=== PATIENT | female | born 1965 | race Caucasian/White ===

== ENCOUNTER 2018-07-24 11:44 | Inpatient (IN) ==
[2018-07-24] MEDS ORDERED: D50W SYRINGE ONE (11:52)
[2018-07-24 12:13] LABS: BASO# 0.05 X1000 (0.0-0.2); BASO% 0.5 % (0.0-0.8); EOS# 0.32 X1000 (0.0-0.7); EOS% 3.5 % (0.0-10.0); HEMATOCRIT 45.4 % (37.0-47.0); HEMOGLOBIN 14.1 g/dL (12.0-16.0); IMM GRAN# 0.02 X1000 (0.0-0.04); IMM GRAN% 0.2 % (0.0-0.5); LYMPH% 49.2 % (20.5-51.1); MCHC 31.1 g/dL (33-37); MCV 83.6 FL (81-99); MONO# 0.88 X1000 (0.11-0.59); MONO% 9.6 % (1.7-9.3); MPV 12.6 FL (7.4-10.4); NEUT# 3.38 X1000 (1.4-6.5); PLT 250 X1000 (130-400); RBC 5.43 XMIL (4.2-5.4); RDW 17.2 % (11.5-14.5); WBC 9.15 X1000 (4.8-10.8)
[2018-07-24] MEDS ORDERED: ZOFRAN IV ONE (12:24)
[2018-07-24] MEDS ORDERED: D50W SYRINGE IV ONE ×2 (12:24→14:06)
[2018-07-24 12:37] LABS: ALB/GLOB RATIO 2.2; ALBUMIN 4.7 g/dL (3.5-5.0); CALCIUM 9.7 mg/dL (8.8-10.2); CREATININE 1.1 mg/dL (0.5-0.9); MAGNESIUM 2.1 mg/dL (1.5-2.7); POTASSIUM 3.8 mmol/L (3.5-5.1); TOTAL BILIRUBIN 0.36 mg/dL (0.20-1.00); TOTAL PROTEIN 6.8 g/dL (6.3-8.3)
[2018-07-24 12:38] LABS: ACETAMINOPHEN < 1.2 ug/mL (10-30); SALICYLATES < 3.00 mg/dL (3-10)
--- NOTE | 2018-07-24 12:45 | Diag Imaging Result Doc PS360 ---
EXAM: CHEST-PORTABLE - 07/24/2018 HISTORY: syncope TECHNIQUE: Portable chest COMPARISON: 06/15/2018 FINDINGS: Heart size is normal. The lungs appear clear. There is no pleural effusion or pneumothorax identified. IMPRESSION: No evidence of acute disease. Electronically signed by Javan Jarrett 07/24/2018 12:42 PM
--- NOTE | 2018-07-24 14:11 | PROVIDER DOCUMENTATION ---
This chart was entered by Aminta Paz Scribe, acting as scribe for Allen Baez MD. HPI-Syncope/Dizziness - General Stated Complaint: SYNCOPE Time Seen by Provider: 07/24/18 11:51 Source: patient Allergies/Adverse Reactions: Patient Allergies Allergy/AdvReac Type Severity Reaction Status Date / Time acetaminophen [From [place]] AdvReac Unknown Verified 07/22/18 15:34 hydrocodone [From [place]] AdvReac Unknown Verified 07/22/18 15:34 morphine AdvReac Unknown Verified 07/22/18 15:34 Penicillins AdvReac Unknown Verified 07/22/18 15:34 Sulfa (Sulfonamide AdvReac Unknown Verified 07/22/18 15:34 Antibiotics) Home Medications: Home Medication List Medication Instructions Recorded Confirmed Last Taken Type Levofloxacin 250 mg PO DAILY #5 tablet 01/31/17 Unknown Rx Ondansetron Odt [Zofran 8Mg Odt] 8 mg PO Q8H PRN PRN #20 tab 07/22/18 Unknown Rx - History of Present Illness-Syncope/Dizzy Nature of Presenting Problem: 53yof with hx of diabetes presents post-syncopal episode that occurred this morning at work. The patient is a nurse at [employer]. Nurses that work with the patient report that the patient had a witnessed syncopal episode and "slumped" to the floor. They report that the patient reported she did eat breakfast. The patient had a syncopal episode last Wednesday while at work. The patient reports her PCP is Dr. Landrum. Nurses that the patient works with are at bedside. Prior Episodes: reports: recent history Onset/Duration: reports: this morning Timing: reports: improving, intermittent Position/Activity at time of episode: reports: standing Symptoms prior to episode: reports: unknown Context: reports: other (syncopal episode) Loss of Consciousness: unsure Location of injury. (If syncope resulted in an injury.): reports: none Recently Seen Here or By Another Healthcare Provider: Yes (syncopal episode last Wednesday ) Review of Systems - Adult - REVIEW OF SYSTEMS - ADULT ROS:: limited per condition (pt is mostly nonverbal, post-syncopal episode) Constitutional: denies: chills, fever Eyes: reports: no symptoms reported Ears, Nose, Mouth & Throat: reports: no symptoms reported Cardiovascular: reports: no symptoms reported Respiratory: reports: no symptoms reported Gastrointestinal: reports: no symptoms reported Genitourinary: reports: no symptoms reported Musculoskeletal: reports: no symptoms reported Integumentary: reports: no symptoms reported Neurological: reports: syncope. denies: seizure Psychiatric: reports: no symptoms reported Endocrine: reports: no symptoms reported Hematologic/Lymphatic: reports: no symptoms reported Allergic/Immunologic: reports: no symptoms reported All Other Systems: Reviewed and Negative Past History - Adult - PAST MEDICAL HISTORY-ADULT Review of Records: reports: Old Records Reviewed, Nursing Assessment Review, Medications Reviewed Major Childhood Illnesses: reports: denies history Cardiovascular: reports: HTN, hyperlipidemia Respiratory: reports: denies history Gastrointestinal: reports: denies history Obstetrical/Gynecological: reports: denies history Genitourinary: reports: denies history Musculoskeletal: reports: denies history Neurological: reports: denies history Psychiatric: reports: denies history Endocrine/Immune: reports: Diabetes Other Conditions: reports: denies history Additional History: neuropathy - PRIOR SURGERIES/PROCEDURES Surgical/Procedure History: reports: reviewed, not pertinent - IMMUNIZATION STATUS Childhood Immunizations: See Nurse Assessment Flu Vaccine: See Nurse Assessment - FAMILY HISTORY Family History: reviewed, not pertinent - SOCIAL HISTORY Smoking: non-smoker Substance Use: denies Living Situation: family Physical Exam-General - PHYSICAL EXAM-ADULT Initial Vital Signs Reviewed: Yes - CONSTITUTIONAL General Appearance: lethargic, other (pt is awake, lying down, lethargic, eyelid fluttering, pt is mostly nonverbal, post-syncopal episode) - EYES Eyes: PERRL/EOMI, pink conjunctivae - NECK Neck: other (unable to assess due to pt lying down, post-syncopal episode) - RESPIRATORY Respiratory: chest non-tender, lungs clear, normal breath sounds, no pleuratic chest pain, no respiratory distress, no accessory muscle use - CARDIOVASCULAR Cardiovascular: regular rate, rhythm, no murmur - MUSCULOSKELETAL Extremity: non-tender, normal inspection, no pedal edema - SKIN Integumentary: normal color, warm/dry. negative: cyanosis, ecchymosis, erythema - NEUROLOGIC Neurologic: other (pt is mostly nonverbal, post-syncopal episode) - PSYCHIATRIC Psych/Mental Status: other (pt is mostly nonverbal, post-syncopal episode) Progress - PLAN OF CARE/RESULTS Progress/Plan/Lab Results: Vital Signs - 8 hr 07/24/18 12:02 Temperature 98.0 F Pulse Rate 89 Respiratory Rate 16 Blood Pressure 170/103 O2 Sat by Pulse Oximetry 90 L 07/24/18 12:04 Influenza Screen - Final Nasopharyngeal Laboratory Results - last 24 hr 07/24/18 07/24/18 07/24/18 11:49 11:49 11:49 WBC RBC Hgb Hct MCV MCH MCHC RDW Std Deviation Plt Count MPV Immature Gran % (Auto) Neut % (Auto) Lymph % (Auto) [place] % (Auto) Eos % (Auto) Baso % (Auto) Immature Gran # (Auto) Neut # (Auto) Lymph # (Auto) [place] # (Auto) Eos # (Auto) Baso # (Auto) Sodium Potassium Chloride Carbon Dioxide Anion Gap BUN Creatinine Estimated GFR/1.73 m2 BUN/Creatinine Ratio Glucose POC Glucose 58 L Calculated Osmolality Calcium Magnesium Total Bilirubin AST ALT Alkaline Phosphatase Creatine Kinase Troponin T Total Protein Albumin Globulin Albumin/Globulin Ratio TSH 0.73 Salicylates Acetaminophen Acetone Level NEGATIVE 07/24/18 07/24/18 07/24/18 11:49 11:49 11:49 WBC 9.15 RBC 5.43 H Hgb 14.1 Hct 45.4 MCV 83.6 MCH 26.0 L MCHC 31.1 L RDW Std Deviation 17.2 H Plt Count 250 MPV 12.6 H Immature Gran % (Auto) 0.2 Neut % (Auto) 37.0 L Lymph % (Auto) 49.2 [place] % (Auto) 9.6 H Eos % (Auto) 3.5 Baso % (Auto) 0.5 Immature Gran # (Auto) 0.02 Neut # (Auto) 3.38 Lymph # (Auto) 4.50 H [place] # (Auto) 0.88 H Eos # (Auto) 0.32 Baso # (Auto) 0.05 Sodium 138 Potassium 3.8 Chloride 101 Carbon Dioxide 23 L Anion Gap 14 BUN 15 Creatinine 1.1 H Estimated GFR/1.73 m2 52 BUN/Creatinine Ratio 14 Glucose 59 L POC Glucose Calculated Osmolality 274 Calcium 9.7 Magnesium 2.1 Total Bilirubin 0.36 AST 37 H ALT 49 H Alkaline Phosphatase 49 Creatine Kinase 125 Troponin T < 0.010 Total Protein 6.8 Albumin 4.7 Globulin 2.1 Albumin/Globulin Ratio 2.2 TSH Salicylates Acetaminophen Acetone Level 02/17/19 02/17/19 02/17/19 11:49 12:28 13:16 WBC RBC Hgb Hct MCV MCH MCHC RDW Std Deviation Plt Count MPV Immature Gran % (Auto) Neut % (Auto) Lymph % (Auto) [place] % (Auto) Eos % (Auto) Baso % (Auto) Immature Gran # (Auto) Neut # (Auto) Lymph # (Auto) [place] # (Auto) Eos # (Auto) Baso # (Auto) Sodium Potassium Chloride Carbon Dioxide Anion Gap BUN Creatinine Estimated GFR/1.73 m2 BUN/Creatinine Ratio Glucose POC Glucose 138 H D 68 L D Calculated Osmolality Calcium Magnesium Total Bilirubin AST ALT Alkaline Phosphatase Creatine Kinase Troponin T Total Protein Albumin Globulin Albumin/Globulin Ratio TSH Salicylates < 3.00 L Acetaminophen < 1.2 L Acetone Level Orders Category Date Time Status Finger Stick Blood Sugar (ED) DIRECTED Care 07/24/18 11:56 Active Nursing- Obtain EKG once Care 07/24/18 11:57 Active Saline Loc NOW Care 07/24/18 11:57 Active Straight Catheterization ORDERED Care 07/24/18 14:06 Ordered CHEST-PORTABLE [RAD] Stat Exams 07/24/18 11:58 Completed ACETAMINOPHEN [TDM] Stat Lab 07/24/18 11:49 Completed ACETONE SERUM [CHEM] Stat Lab 07/24/18 11:49 Completed CBC WITH ELECTRONIC DIFF [HEME] Stat Lab 07/24/18 11:49 Completed CK PROFILE [SP CHEM] Stat Lab 07/24/18 11:49 Completed COMPREHENSIVE METABOLIC PANEL [CHEM] Stat Lab 07/24/18 11:49 Completed INFLUENZA SCREEN A/B Stat Lab 07/24/18 12:04 Completed MAGNESIUM [CHEM] Stat Lab 07/24/18 11:49 Completed SALICYLATES [TDM] Stat Lab 07/24/18 11:49 Completed TROPONIN T Stat Lab 07/24/18 11:49 Completed TSH Stat Lab 07/24/18 11:49 Completed URINALYSIS W/POSS RFLX CULT [URINALYSIS] Stat Lab 07/24/18 11:57 Uncollected URINE DRUG SCREEN Stat Lab 07/24/18 11:57 Uncollected Dextrose 10% Water Inj. [D10w] 1,000 ml Med 07/24/18 14:00 Active IV 75 mls/hr Dextrose 50% Syringe [D50w Syringe] Med 07/24/18 11:52 Discontinued 50 ml .ROUTE .STK-MED ONE Dextrose 50% Syringe [D50w Syringe] Med 07/24/18 12:24 Discontinued 50 ml IV NOW ONE Dextrose 50% Syringe [D50w Syringe] Med 07/24/18 14:06 Once 50 ml IV NOW ONE Ondansetron [Zofran] Med 07/24/18 12:24 Discontinued 4 mg IV NOW ONE EKG [EKG] Stat Ther 07/24/18 11:57 Ordered Result Diagrams: 07/24/18 11:49 07/24/18 11:49 - REASSESSMENT Reassessment #1 Time Reassessed: 14:09 Status: unchanged (Patient given D50 and food, glucose came up to 168, then began to fall again. Went to restroom and passed out after urinating. Blood sugar back to 58. Given a second amp of D50 and D10W drip ordered) - EKG 1 Time of EKG reading by physician:: 11:57 EKG Read and Signed by:: Allen Baez EKG Interpretation (*Must complete 3 of following elements*): Abnormal Rate: 71 Rhythm: Normal sinus rhythm [place]: normal ST Wave: non-specific ST changes Comments: NAD, artifact present - XRAY 1 XRAY Study: Chest Impression: Normal (FINDINGS: Heart size is normal. The lungs appear clear. There is no pleural effusion or pneumothorax identified. IMPRESSION: No evidence of acute disease.) - CONSULTS/PCP/HOSPITALIST Notification #1 *Consult/PCP/Hospitalist*: Jessy Time Discussed: 14:10 (Admit to [facility]) Consult Disposition: Will see in ED Departure - Departure Date of Disposition Decision: 07/24/18 Time of Disposition Decision: 14:08 DIAGNOSIS: Hypoglycemia, Syncope and collapse Disposition: ADMITTED INPATIENT 09 Certified Medical Emergency: Emergent Condition: Stable Additional Freetext Instructions: ED Follow Up Instructions: You have been treated by a care provider in the Emergency Department. These instructions are being provided to you so you can have an understanding of how to care for yourself upon discharge. Upon discharge from the Emergency Department, you are responsible for making arrangements for follow-up care by a physician of your choice. Take all prescribed medications as directed. Return to the Emergency Department immediately for any new or worsening symptoms. You may call the Physician Referral phone number at [phone] to obtain a list of Physicians who are taking new patients. - Critical Care Note This patient required my direct & personal management of CC.: No Attestation - Physician/ MILLI Attestation Patient care was provided by Advanced Practice Provider:: No The physician spent face to face time with patient:: Yes Advanced Practice Provider documentation review:: Supervising physician onsite and consulted in the evaluation and care of this patient. The physician did have a face to face encounter with the patient. This chart was documented by the indicated scribe, (Aminta Paz, Scribe) and accurately reflects the services I performed and decisions made by me, Allen Baez MD, as attested by the provider's signature.
[2018-07-24 14:33] LABS: URINE SOURCE CLEAN CATCH
[2018-07-24 14:36] LABS: BILIRUBIN URINE NEGATIVE (NEGATIVE); BLOOD URINE NEGATIVE (NEGATIVE); COLOR STRAW; GLUCOSE URINE NEGATIVE (NEGATIVE); KETONE URINE NEGATIVE (NEGATIVE); LEUKOCYTES URINE LARGE (NEGATIVE); NITRITE URINE NEGATIVE (NEGATIVE); PROTEIN URINE NEGATIVE (NEGATIVE); TURBIDITY URINE HAZY (CLEAR); UROBILINOGEN URINE NORMAL (NORMAL)
[2018-07-24] MEDS ORDERED: CELEXA PO ONE (14:36)
[2018-07-24] MEDS ORDERED: D50W SYRINGE IV PRN (14:36)
[2018-07-24 14:47] LABS: UR EPITHELIAL CELLS <10 /HPF (<10); URINE BACTERIA 1+ /HPF; URINE RBC <10 /HPF (<10); URINE WBC 20-40 /HPF (<10)
[2018-07-24 14:50] LABS: UR AMPHETAMINES QUAL NONE DETECTED (NONE DETECT); UR BARBITUATES QUAL NONE DETECTED (NONE DETECT); UR BENZODIAZEPIN QUAL NONE DETECTED (NONE DETECT); UR CANNABINOIDS QUAL NONE DETECTED (NONE DETECT); UR COCAINE QUAL NONE DETECTED (NONE DETECT); UR METHADONE QUAL NONE DETECTED (NONE DETECT); UR OPIATES QUAL NONE DETECTED (NONE DETECT); UR OXYCODONE QUAL NONE DETECTED (NONE DETECT); UR PCP QUAL NONE DETECTED (NONE DETECT)
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
[2018-07-24] MEDS: D10W 1,000 ML IV SCH (15:29)
[2018-07-24] MEDS: ZOFRAN IV PRN (16:35)
[2018-07-24] MEDS ORDERED: PRILOSEC PO SCH (21:00)
[2018-07-24] MEDS: ATIVAN PO PRN (21:54)
[2018-07-24] MEDS: NEXIUM PO SCH (21:54)
[2018-07-24] MEDS: PRINIVIL PO SCH (21:54)
[2018-07-24] MEDS: MOTRIN PO PRN (23:45)
[2018-07-25] MEDS: D10W 1,000 ML IV SCH ×3 (04:22→18:56)
[2018-07-25] MEDS: ATIVAN PO PRN (04:23)
[2018-07-25] MEDS: MOTRIN PO PRN ×2 (04:23→15:10)
[2018-07-25 06:42] LABS: BASO# 0.03 X1000 (0.0-0.2); BASO% 0.7 % (0.0-0.8); EOS# 0.21 X1000 (0.0-0.7); EOS% 5.2 % (0.0-10.0); HEMATOCRIT 43.6 % (37.0-47.0); HEMOGLOBIN 13.3 g/dL (12.0-16.0); LYMPH# 1.61 X1000 (1.2-3.4); LYMPH% 40.1 % (20.5-51.1); MCH 26.1 PG (27-31); MCHC 30.5 g/dL (33-37); MCV 85.5 FL (81-99); MONO# 0.51 X1000 (0.11-0.59); MONO% 12.7 % (1.7-9.3); MPV 12.7 FL (7.4-10.4); NEUT# 1.65 X1000 (1.4-6.5); NEUT% 41.3 % (42.2-75.2); PLT 203 X1000 (130-400); RDW 17.3 % (11.5-14.5); WBC 4.01 X1000 (4.8-10.8)
[2018-07-25 07:07] LABS: HEMOGLOBIN A1C 6.3 % (4.8-6.0)
[2018-07-25 07:08] LABS: INR 1.02; PROTIME 14.2 Seconds (11.0-16.0); PTT 27.2 Seconds (22.3-41.8)
[2018-07-25 07:14] LABS: ALB/GLOB RATIO 2.2; ALBUMIN 4.1 g/dL (3.5-5.0); CALCIUM 9.6 mg/dL (8.8-10.2); MAGNESIUM 2.2 mg/dL (1.5-2.7); POTASSIUM 3.9 mmol/L (3.5-5.1); TOTAL BILIRUBIN 0.36 mg/dL (0.20-1.00)
[2018-07-25 07:27] LABS: FREE T4 1.25 ng/dL (0.93-1.70); TSH 0.69 uIUmL (0.27-4.20)
[2018-07-25] MEDS: ZOFRAN IV PRN ×5 (07:40→20:27)
--- NOTE | 2018-07-25 10:23 | PROGRESS NOTE ---
DATE: 07/25/2018 SUBJECTIVE: Ms. Cancino is feeling much better. Awake and alert. No nausea at the present time. OBJECTIVE: Vitals: Temperature 98.9 degrees, pulse 70, respirations 16, blood pressure 147/84. Eyes: Pupils are equal and round. Lungs: Clear in all lung navarrete. Cardiovascular: Regular rhythm and rate without murmur or S3. Abdomen: Soft. Skin: Warm and dry. URINE OUTPUT: Good by report. BLOOD SUGARS: 91 and 139. LABORATORY: White count 4010, hematocrit 43, platelet count 203,000. Sodium 141, potassium 3.9, chloride 104, BUN 9, creatinine 1. B12 was 953. Folate is 14.3. TSH is 0.69. T4 is 1.25. Cortisol level appeared normal. A.m. cortisol was 10, normal values being 6.2 to 19.4. Hemoglobin A1c was 6.3. PHYSICAL EXAMINATION: Vitals: Temperature 98.9 degrees, pulse 70, respirations 16, blood pressure 147/84. HEENT: Pupils are equal. No distended neck veins. Lungs: Clear in all lung navarrete. Cardiovascular: Regular rhythm and rate without murmur or S3. Abdomen: Soft. Skin: Warm, dry. ASSESSMENT AND PLAN: 1. Functional hypoglycemia. She is not taking any hypoglycemic medications. I did go up on her Celexa. She is on Prinivil 10 mg twice a day. 2. Blood pressure appears well controlled. We will hold her Norvasc. 3. She has a history of gastric ulcers and I suspect some gastritis. She is going through a lot of stress at this time. So I think she has had a little volume depletion as well. 4. Electrolytes and kidney function looked good. So, she may get to go home this afternoon. We discussed the importance of eating at least 4 times a day. She may need to have little snacks in between, and she has had 30 pounds weight loss over the last month which is too fast. cc: Deepak [facility] MD
[2018-07-25] MEDS: NEXIUM PO SCH (10:50)
[2018-07-25] MEDS: CELEXA PO SCH (10:50)
[2018-07-25] MEDS: PRINIVIL PO SCH (10:51)
--- NOTE | 2018-07-25 11:45 | EKG Report ---
Test Performed on : 07/24/2018 11:49:47 AM Test Reason : syncope Blood Pressure : / mmHG Vent. Rate : 071 BPM Atrial Rate : 071 BPM P-R Int : 150 ms QRS Dur : 094 ms QT Int : 370 ms P-R-T Axes : 049 054 039 degrees QTc Int : 402 ms Normal sinus rhythm. Nonspecific T wave abnormality Abnormal ECG No previous ECGs available Unconfirmed Result
--- NOTE | 2018-07-25 13:43 | ECHO REPORT ---
ORDER DATE: 07/24/2018 ECHOCARDIOGRAPHIC MEASUREMENTS: Interventricular septum 1.2 cm. Left ventricular posterior wall 1.1 cm. Diastolic diameter 4.7 cm. Left atrium 4 cm. Aorta 3.1 cm. SUMMARY OF 2-DIMENSIONAL IMAGING: Technically suboptimal study. Poor acoustic window. Optison was used to assess left ventricular systolic function. Normal left ventricular cavity size. Estimated ejection fraction off 65% to 70%. There is borderline left ventricular hypertrophy. Aortic valve leaflets were trileaflet. Mitral valve was normal. Tricuspid valve was normal. By Doppler studies there is no aortic stenosis or regurgitation. There is trace mitral regurgitation. Mild tricuspid regurgitation. Peak velocity across the tricuspid valve was 2.6 m/sec. Right ventricle was mildly enlarged with decreased right ventricular apical systolic function as seen on the Optison scan. There is no pericardial effusion or obvious intracardiac mass or thrombus seen. cc: MD Jessy Arreguin CRNP
[2018-07-25] MEDS ORDERED: PHENERGAN IV ONE (23:31)
[2018-07-25] MEDS ORDERED: SODIUM CHLORIDE 0.9% INJ ONE (23:31)
[2018-07-26] MEDS: ATIVAN PO PRN (02:01)
[2018-07-26] MEDS: MOTRIN PO PRN ×2 (02:01→16:00)
[2018-07-26] MEDS: NEXIUM PO SCH ×3 (03:59→20:51)
[2018-07-26] MEDS: PRINIVIL PO SCH ×2 (04:00→08:42)
[2018-07-26] MEDS: D10W 1,000 ML IV SCH (08:37)
[2018-07-26] MEDS: CELEXA PO SCH ×2 (08:42→21:36)
[2018-07-26] MEDS: ZOFRAN IV PRN ×2 (08:43→13:35)
--- NOTE | 2018-07-26 18:02 | PROGRESS NOTE ---
DATE: 07/26/2018 SUBJECTIVE: She is just very down. unfortunately, she has had a lot of stressors in her life. She is still feeling dizzy with standing. She does not want to eat, having lot issues there. OBJECTIVE: Vital signs: Blood pressure is 145/78, heart rate 73, respiratory rate 16, temperature 98.2 degrees, 94% on room air. Cardiovascular: Regular rate and rhythm. Pulmonary: Bilateral breath sounds. Clear to auscultation. Gastrointestinal: Soft, nontender, nondistended. Bowel sounds are positive. LABORATORY DATA: I do not have any new data today. Her A1c is only 6.3. Her sugars have been low. Her insulin level was high, which I am not sure if that is a total insulin level, but it was almost double normal. C-peptide was normal, which is inconsistent. PROBLEM LIST: 1. Functional hypoglycemia. It is not clear what is causing this. She is still having low sugars. Off D10, she went down into the 100s. She is not having issues otherwise so just very odd kind of problems. Laboratory data sugars have been kind of up and down. We will initiate D5 until she is hyperglycemic and then stabilize. 2. Hypertension. Continue Norvasc. 3. Gastroesophageal reflux disease (GERD), gastritis and hx peptic ulcer disease - continue PPI and supportive treatment. 4. Depression, adjustment disorder. Her has recently it sounds like he had an affair and then he her and there are issues with the house. With the process of divorce, she has no home. Just a lot of issues all at once and significant amount of stress. She has been on Celexa, a higher dose, but she felt like it was causing problems with her general functioning, so she decided to not take it. In any case, her blood pressure is still stabilizing. I do think she has got severe adjustment disorder with depression. I am going to go up to 20 on the Celexa and see how she does and work on sleep. I think she may need some outpatient counseling. Her insulin level being high and C-peptide level being normal would suggest that possibly this is iatrogenic or this is exogenous insulin, not endogenous insulin. I am going to repeat her level tomorrow. Right now she is not getting any insulin or she should not be; I do not think she has gotten any insulin, but I do not think she has gotten any insulin at home. She has not been on any drugs, which is just a very odd situation. Surreptitious insulin certainly could be a possibility, but it is not likely, but we will continue to follow. cc: Wagner Kent MD MTDD
[2018-07-26] MEDS: D5 NS 1,000 ML IV SCH ×2 (19:39)
[2018-07-26] MEDS: RESTORIL PO PRN (21:37)
[2018-07-27] MEDS: MOTRIN PO PRN ×2 (03:11→11:52)
[2018-07-27 06:31] LABS: BASO# 0.04 X1000 (0.0-0.2); EOS# 0.27 X1000 (0.0-0.7); EOS% 6.7 % (0.0-10.0); HEMATOCRIT 44.2 % (37.0-47.0); HEMOGLOBIN 13.6 g/dL (12.0-16.0); LYMPH# 1.53 X1000 (1.2-3.4); LYMPH% 38.1 % (20.5-51.1); MCH 26.3 PG (27-31); MCHC 30.8 g/dL (33-37); MCV 85.3 FL (81-99); MONO# 0.54 X1000 (0.11-0.59); MONO% 13.4 % (1.7-9.3); MPV 12.8 FL (7.4-10.4); NEUT# 1.64 X1000 (1.4-6.5); NEUT% 40.8 % (42.2-75.2); PLT 174 X1000 (130-400); RBC 5.18 XMIL (4.2-5.4); RDW 17.2 % (11.5-14.5); WBC 4.02 X1000 (4.8-10.8)
[2018-07-27 07:00] LABS: AGAP 11; BUN 5 mg/dL (8-22); CHLORIDE 106 mmol/L (98-107); COSMO 283; CREATININE 0.9 mg/dL (0.5-0.9); ESTIMATED GFR > 60; GLUCOSE 139 mg/dL (70-104); POTASSIUM 4.1 mmol/L (3.5-5.1); SODIUM 142 mmol/L (136-145); TCO2 25 mmol/L (25-35)
[2018-07-27] MEDS ORDERED: NEXIUM PO SCH (09:00)
[2018-07-27] MEDS: D5 NS 1,000 ML IV SCH (09:40)
[2018-07-27] MEDS: ZOFRAN IV PRN ×2 (09:41→18:09)
[2018-07-27] MEDS: BIOTIN PO SCH (11:48)
[2018-07-27] MEDS: CRESTOR PO SCH (11:49)
[2018-07-27] MEDS: NEXIUM PO SCH ×2 (11:50→21:13)
[2018-07-27] MEDS: ZETIA PO SCH (11:51)
[2018-07-27] MEDS: VITAMIN D PO SCH (11:51)
[2018-07-27] MEDS: MAG-OX PO SCH (11:52)
[2018-07-27] MEDS: BENICAR PO SCH (11:52)
[2018-07-27] MEDS: CLARITIN PO SCH (11:52)
[2018-07-27] MEDS: NORVASC PO SCH (11:52)
[2018-07-27] MEDS: D10W 1,000 ML IV SCH (16:13)
--- NOTE | 2018-07-27 18:47 | PROGRESS NOTE ---
DATE: 07/27/2018 SUBJECTIVE: Patient has no focal complaints. OBJECTIVE: Vital signs: Blood pressure 154/79, heart rate 79, respiratory 18, temperature 98 degrees, 94% on room air. Cardiovascular: Regular rate and rhythm. Pulmonary: Bilateral breath sounds clear to auscultation. Gastrointestinal: Soft, nontender, nondistended. Bowel sounds are positive. LABORATORY DATA: White count 4, hemoglobin 13, hematocrit 44, platelets 174,000. Blood sugars 114, that was fasting and that is on D5. Her insulin level still high almost 36. Her C-peptide today is high at 6, which is higher than normal. PROBLEM LIST: 1. Persistent hypoglycemia without clear etiology. She is on D5 and is maintaining sugars in the 100s. We will try to work on weaning her off, but we are having difficulty. It is unclear what the etiology is. Initially her insulin and C-peptide data supports exogenous insulin, but today's data reports excess endogenous insulin, plus she is also maintaining low blood sugars, but only on supplementation so she may have hyperinsulinism, possible insulinoma, or possibly an insulin receptor antibody. It is unclear. A factitious disorder is always a possibility. She had 2 episodes of hypoglycemia in the hospital, but with her persistent hypoglycemia and now elevated C-peptide, it would argue more towards an oversecretion of insulin. We will pursue CT. She may need other imaging modalities, MRI or scintigraphy, to better evaluate for possible insulinoma. She will need Endocrinology as an outpatient. Right now, goal is to get her blood sugars stable off infusion and then home. 2. Hypertension. Improved on Norvasc. 3. Gastroesophageal reflux disease (GERD). She is on PPI. 4. Depression. She is on Celexa. DISPOSITION: Just awaiting improved blood sugar levels. Tomorrow, I think we should try to take her off of it and see how her sugars do. Disposition pending her clinical status. cc: Wagner [facility] MD
[2018-07-27] MEDS ORDERED: NS 1,000 ML IV ONE (19:13)
--- NOTE | 2018-07-27 20:00 | Diag Imaging Result Doc PS360 ---
EXAM: CT ABD/PELVIS W/PO AND IV CON - 07/27/2018 HISTORY: evaluate for insulinoma TECHNIQUE: CT abdomen/pelvis with oral and intravenous contrast COMPARISON: None. FINDINGS: There is a questionable small filling defect in peripheral pulmonary artery branches at the posterior medial right lower lobe. There is a small calcified granuloma from old granulomatous disease at the posterior right lower lobe. There are no substantial abnormalities of the liver, spleen, or adrenal glands identified. There is no pancreatic mass or inflammation identified. There are no calcified gallstones or pericholecystic inflammation identified. The bilateral kidneys enhance homogeneously. There is no hydronephrosis. There are some mildly prominent retroperitoneal lymph nodes. There are some small to borderline mesenteric lymph nodes. There is no evidence of bowel obstruction. The appendix is unremarkable. There is no substantial bowel wall thickening identified. There is no free air, free fluid, or abscess identified. Images of pelvis show no discrete abnormal mass or fluid collection. IMPRESSION: Questionable small embolus at peripheral posterior medial right lower lobe pulmonary artery branch. No visible pancreatic lesion. Mild retroperitoneal adenopathy. Borderline mesenteric lymph nodes. This exam was performed using automated exposure control, adjustment of mA or kV according to patient size, and/or use of iterative reconstruction technique. Electronically signed by Javan Jarrett 07/27/2018 7:57 PM
[2018-07-27] MEDS: CELEXA PO SCH (21:13)
[2018-07-27] MEDS: RESTORIL PO PRN (21:13)
[2018-07-28 07:27] LABS: BASO# 0.03 X1000 (0.0-0.2); BASO% 0.7 % (0.0-0.8); EOS# 0.31 X1000 (0.0-0.7); EOS% 7.7 % (0.0-10.0); HEMATOCRIT 44.4 % (37.0-47.0); HEMOGLOBIN 13.7 g/dL (12.0-16.0); LYMPH% 37.3 % (20.5-51.1); MCH 26.7 PG (27-31); MCHC 30.9 g/dL (33-37); MCV 86.4 FL (81-99); MONO# 0.49 X1000 (0.11-0.59); MONO% 12.2 % (1.7-9.3); NEUT# 1.69 X1000 (1.4-6.5); NEUT% 42.1 % (42.2-75.2); PLT 194 X1000 (130-400); RBC 5.14 XMIL (4.2-5.4); RDW 17.4 % (11.5-14.5); WBC 4.02 X1000 (4.8-10.8)
[2018-07-28] MEDS: ZOFRAN IV PRN ×2 (07:42→11:56)
[2018-07-28 07:48] LABS: CALCIUM 10.1 mg/dL (8.8-10.2); POTASSIUM 4.2 mmol/L (3.5-5.1)
[2018-07-28] MEDS: BENICAR PO SCH (09:30)
[2018-07-28] MEDS: CRESTOR PO SCH (09:31)
[2018-07-28] MEDS: ZETIA PO SCH (09:31)
[2018-07-28] MEDS: NORVASC PO SCH (09:31)
[2018-07-28] MEDS: MAG-OX PO SCH (09:31)
[2018-07-28] MEDS: BIOTIN PO SCH (09:31)
[2018-07-28] MEDS: VITAMIN D PO SCH (09:31)
[2018-07-28] MEDS: NEXIUM PO SCH ×2 (09:31→20:40)
[2018-07-28] MEDS: CLARITIN PO SCH (09:32)
[2018-07-28] MEDS ORDERED: SODIUM CHLORIDE 0.9% INJ PRN (14:40)
[2018-07-28] MEDS ORDERED: SENOKOT PO PRN (14:46)
[2018-07-28] MEDS: PHENERGAN IV PRN (15:09)
[2018-07-28] MEDS ORDERED: NS 1,000 ML ONE (15:18)
--- NOTE | 2018-07-28 15:22 | PROGRESS NOTE ---
DATE: 07/28/2018 INTERVAL HISTORY: The patient had CT scan of the abdomen and pelvis done yesterday to rule out insulinoma, which did not detect any pancreatic tumor. However, it did detect a filling defect on the right lower lung suspicious for pulmonary embolism SUBJECTIVE: She continues to have persistent nausea, vomiting, epigastric abdominal pain. She has not been able to eat anything because as soon as she eats she throws up. She previously had history of mild gastritis. We discussed about her poor kidney function. We discussed about her CT scan finding. Ms. Cancino also mentioned that she has been through a lot of stress due to social events which happened recently, and she has had significant decrease in appetite with weight loss,. PHYSICAL EXAMINATION: Vital Signs: Currently, temperature 98.2 degrees, pulse 74, respiratory rate 18, blood pressure 143/73, saturation 94% to 98% on room air. General: On physical examination, the patient appears morbidly obese, not in any acute distress. ENT: Oral cavity is moist. No pharyngeal congestion. Respiratory: Air entry bilaterally equal. No wheeze, rhonchi, crackles. Cardiovascular: S1, S2 normal. No murmur, rub, or gallop. Abdomen: No visible abnormalities. Soft. Tenderness in epigastric region. Active bowel sounds. No rebound or rigidity. Extremities: No lower extremity edema. Neurologic: Alert, oriented x3. LABS: Today suggestive of normal CBC, normal hemoglobin, platelet count. Normal electrolytes, except a creatinine of 1, which appears to be pretty close to her baseline. However, I only have lab results since July of this year. Previously, insulin levels were repeatedly elevated, and C-peptide levels were intermittently normal, not elevated. Urine culture: No growth to date. IMAGING: Abdomen and pelvis CT had detected questionable small embolus at peripheral posterior medial right lower lobe pulmonary artery branch. ASSESSMENT AND PLAN: 1. Acute hypoglycemia requiring multiple intravenous fluid infusions containing dextrose 5%. She is off intravenous fluid now. Previously, I could find only 1 reading where insulin and C- peptides were collected simultaneously. At that time, both insulin and C-peptide levels were elevated which was on July 27. Before that there was discrepancy in terms of timing of insulin and C-peptide draw. CT scan does not detect any insulin secreting insulinoma on imaging. My suspicion for insulinoma is low. Her hypoglycemia is likely because of persistent nausea and vomiting leading to poor oral intake. In any case, she should get outpatient Endocrinology appointment. 2. Persistent nausea, vomiting. Differential includes acute gastritis versus peptic ulcer disease. Continue proton pump inhibitors twice daily and add sucralfate. I will also get Gastroenterology consultation considering her nausea and vomiting are intractable to see if she would need esophagogastroduodenoscopy if her intractable nausea and vomiting does not subside. Start patient on intravenous Phenergan as needed for better control of nausea and vomiting. 3. Essential hypertension. Continue patient on home medication of amlodipine and Olmesartan. 4. Continue ezetimibe and rosuvastatin for hyperlipidemia. 5. Anxiety. Continue home citalopram at increased dose and as-needed temazepam. 6. Suspected pulmonary embolism. She does not have risk factor for pulmonary embolism. However considering the finding on CT scan, I am repeating dedicated CAT scan to rule out pulmonary embolism tomorrow. 7. Disposition: The patient remains inside the hospital for persistent intractable nausea and vomiting and suspicion of pulmonary embolism and evaluation for need for esophagogastroduodenoscopy. My goal is to discharge her home in the next 48 hours or so once her nausea and vomiting are under control. cc: Rmo Sosa MD
[2018-07-28] MEDS: CELEXA PO SCH (20:40)
[2018-07-28] MEDS: CARAFATE LIQUID PO SCH (20:40)
[2018-07-28] MEDS: RESTORIL PO PRN (20:49)
[2018-07-29] MEDS: PHENERGAN IV PRN (00:44)
[2018-07-29] MEDS: CARAFATE LIQUID PO SCH ×4 (00:45→15:22)
[2018-07-29 07:03] LABS: CALCIUM 9.2 mg/dL (8.8-10.2); POTASSIUM 3.9 mmol/L (3.5-5.1)
--- NOTE | 2018-07-29 08:04 | Diag Imaging Result Doc PS360 ---
EXAM: CT ANGIOGRM PULMONARY ARTERIES HISTORY: Rule out PE. CT abd was suspicious for Right PE TECHNIQUE: CT chest with intravenous contrast. Pulmonary arterial protocol with MIP images. COMPARISON: None. FINDINGS: There are small filling defects within branches of the right lower lobe posteriorly. No large central filling defects in the pulmonary arteries. No thoracic aortic aneurysm or dissection. No pleural effusions. No cardiomegaly. No enlarged lymph nodes. No consolidation. No bronchiectasis. There is a granuloma in the right lower lobe. IMPRESSION: Right lower lobe peripheral pulmonary emboli This report was discussed with Rossy, the patient's nurse on [facility], on 07/29/2018 at 8:00 AM and was readback. This exam was performed using automated exposure control, adjustment of mA or kV according to patient size, and/or use of iterative reconstruction technique. Electronically signed by Giovanny Foley 07/29/2018 8:01 AM
[2018-07-29] MEDS: BENICAR PO SCH (08:44)
[2018-07-29] MEDS: VITAMIN D PO SCH (08:45)
[2018-07-29] MEDS: CRESTOR PO SCH (08:45)
[2018-07-29] MEDS: NEXIUM PO SCH (08:46)
[2018-07-29] MEDS: NORVASC PO SCH (08:46)
[2018-07-29] MEDS: ZETIA PO SCH (08:46)
[2018-07-29] MEDS: BIOTIN PO SCH (08:46)
[2018-07-29] MEDS: CLARITIN PO SCH (08:46)
[2018-07-29] MEDS: MAG-OX PO SCH (08:46)
[2018-07-29] MEDS: PHENERGAN PO PRN ×3 (08:52→16:10)
[2018-07-29] MEDS ORDERED: ELIQUIS PO SCH (09:00)
[2018-07-29] MEDS: MOTRIN PO PRN (15:23)
[2018-07-29 15:32] VITALS: BP 134/70
[2018-07-29] MEDS ORDERED: PNEUMOVAX 23 IM ONE (15:45)
--- NOTE | 2018-07-29 16:54 | CONSULTATION ---
DATE OF CONSULTATION: 07/29/2018 REASON FOR CONSULTATION: Nausea, vomiting. HISTORY OF PRESENT ILLNESS: This is a 53-year-old, white female, who is a nurse at [employer]. She had passed out while at work and was found to have a low blood sugar. Patient reports she has had several episodes of syncope that was related to low blood sugars. She has also reported elevated blood pressure. She has been following with Miguel Landrum DO. She states that she has not been able to keep anything down and had nausea with vomiting. She has had improvement in her nausea and vomiting since receiving Phenergan while in the hospital. She states she was able to eat several bites of her breakfast today without vomiting. She is a former patient of Charity Diaz MD. Had last seen Dr. Diaz on 05/18/2018. Patient had an EGD and colonoscopy in January 2017 with findings of colon polyps, diverticulosis, hemorrhoids, esophagitis, gastritis, hiatal hernia. Biopsy had shown fundic gland polyp, gastritis. H-pylori was negative. Tubular adenomatous polyp and hyperplastic polyp. She had followed back with Dr. Diaz in the office in May and at that time, she was working on diet and weight loss. She had stated her dysphagia and abdominal pain had improved with Carafate. Patient has had imaging evaluation to rule out insulinoma and was found to have embolus at the peripheral posterior medial right lower lobe. The patient had pulmonary arteriogram that showed right lower lobe peripheral pulmonary emboli and patient has been started on Eliquis. PAST MEDICAL HISTORY: Anxiety, depression. GERD. History of colon polyps. Hypertension, metabolic syndrome, vitamin deficiency, diabetes type 2. She had not been taking diabetic medication. PAST SURGICAL HISTORY: Tubal ligation, neck surgeries, EGD and colonoscopy in January 2018. ALLERGIES: To acetaminophen, [place], morphine, penicillin, sulfa with unknown reaction listed. HOME MEDICATIONS: Norvasc 5 mg daily. Biotin 1000 mcg daily. Vitamin D3 2000 mg daily. Celexa 5 mg daily, Nexium 40 mg daily. Zetia 10 mg daily, loratadine 10 mg daily, magnesium 400 mg daily. Benicar 20 mg daily. Crestor 10 mg daily. SOCIAL HISTORY: Negative for tobacco or alcohol use. She is currently going through a divorce. She is a nurse at [employer]. FAMILY HISTORY: Mother had CVA and diabetes. Father with CVA, hypertension, diabetes. REVIEW OF SYSTEMS: Per history of present illness. PHYSICAL EXAMINATION: Vital Signs: Temperature 98.1, pulse 71, respirations 20, blood pressure 130/63. General: Patient is awake and alert, no acute distress. HEENT: Normocephalic, atraumatic. Pupils equal, round, reactive to light. Sclerae nonicteric. Respiratory: Lung sounds essentially clear. Cardiovascular: Regular rate and rhythm. Abdomen: Soft, with tenderness in the mid abdomen. Otherwise positive bowel sounds. Extremities: No lower extremity edema noted. She has Mahesh hose in place. LABORATORY: Hematology: WBC 4.02, hemoglobin 13.7, hematocrit 44.4, MCV 86.4, platelet 194. Chemistry: Sodium 144, potassium 3.9, chloride 107, CO2 of 27, BUN 11, creatinine 1.1, glucose 113. Total bilirubin 0.36, AST 34, ALT 44, alkaline phosphatase 45. Has noted imaging studies have shown a right lower lobe peripheral pulmonary emboli. She has been started on Eliquis. ASSESSMENT AND PLAN: 1. Recent hypoglycemia. 2. Recent syncopal episode. 3. Nausea, vomiting. Continue proton pump inhibitor. Continue p.r.n. medications for nausea and vomiting. Continue Carafate as ordered. She had a recent EGD and colonoscopy in January 2018 with findings of colon polyps, diverticulosis, hemorrhoids, esophagitis, gastritis, hiatal hernia. Follow anti-reflux measures and again continue symptomatic treatment for nausea and vomiting. 4. New findings of pulmonary emboli. She has been started on Eliquis. 5. Anxiety, depression, recent stress. Continue current medications. PLAN: We will continue to follow. Continue PPI and Carafate. Continue symptomatic treatment for nausea and vomiting. Due to recent findings of pulmonary emboli, would not recommend proceeding with endoscopy at this time. She did have an EGD and colonoscopy in January 2018. Would continue current medical management and further plans to be made according to her progress. Will continue to follow during her hospital course. We will follow back with her on Wednesday and other GI team will be telephone interviewer if needed. I have discussed this case with Dr. Lovell. Dictated by KAILEE Roberts for Rome Lovell MD cc: KAILEE Sanchezf, MD
--- NOTE | 2018-07-30 13:48 | DISCHARGE SUMMARY ---
ADMISSION DATE: 07/24/2018 DISCHARGE DATE: 07/29/2018 DISCHARGE DIAGNOSES: 1. Acute hypoglycemia requiring multiple intravenous fluid infusions containing dextrose 5%. (unclear etiology: Differential being poor oral intake due to anxiety, surreptitous use of insulin vs insulinoma vs others) 2. Persistent nausea and vomiting due to acute gastritis. 3. Acute right lower lobe pulmonary embolism. 4. Essential hypertension. 5. Severe anxiety. 6. Insomnia. OTHER DIAGNOSES: 1. History of essential hypertension. 2. History of vitamin D3 deficiency. 3. Hyperlipidemia. 4. Severe anxiety. CONSULTATIONS DURING HOSPITALIZATION: Gastroenterology, Rome Lovell MD. DISCHARGE MEDICATIONS: Amlodipine 5 mg daily, biotin 1000 mcg p.o. daily, Cholecalciferol 2000 mEq p.o. daily, Ezetimibe 10 mg daily, loratadine 10 mg daily, magnesium 400 mg daily, olmesartan 20 mg daily, Rosuvastatin 10 mg daily, sucralfate 1 g p.o. q.6 h. for 7 days, Eliquis 10 mg b.i.d. for 7 days and then 5 mg b.i.d. for up to 6 months, citalopram 20 mg daily, esomeprazole 40 mg p.o. b.i.d., promethazine 12.5 mg p.o. q.4 h. p.r.n. for nausea and vomiting, senna 2 tablets p.o. daily p.r.n. for constipation, temazepam 30 mg at nighttime p.r.n. for anxiety or insomnia. PHYSICAL EXAMINATION: Vital Signs: Vitals at the time of discharge: Temperature 98.1 degrees, pulse 71, blood pressure 130/60, saturating 95% on room air. Orthostatic blood pressure has been within acceptable range. General: Appears morbidly obese, not in any acute distress. HEENT: Oral cavity is moist. Lungs: Air entry bilaterally equal. No wheeze, rhonchi , crackles. Cardiovascular: S1, S2 normal. No murmur, rub, or gallop. Abdomen: Soft, nontender. Extremities: No lower extremity edema. LABORATORY STUDIES: Labs suggestive of WBC of 4000, hemoglobin of 13.7, platelet count of 194,000. Normal electrolytes with creatinine of 1. Blood sugar was 113. Microbiology: Urine culture no growth to date. IMAGING DURING HOSPITALIZATION: Chest x-ray on admission did not detect any acute cardiopulmonary disease. Abdomen and pelvis CT detected questionable small embolus at peripheral posterior medial right lower lobe pulmonary artery branch without any evidence of insulinoma. Pulmonary arteriogram had detected right lower lobe peripheral pulmonary emboli. 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 She was also diaphoretic. She was given D50 and she was able to get back to her usual self. She was allowed to go home, however, she experienced another such witnessed syncopal episode while at work and was taken to the emergency room after a CAT call was called. She on presentation did not have any chills, fever, seizure. She was found to have a blood sugar of 58 at that time and was given dextrose intravenously. She was kept in the hospital on intravenous dextrose to maintain normal blood sugar. Later on, her intravenous dextrose was stopped and she maintained her normal blood sugars without any hypoglycemic episodes during hospitalization. She also had acute nausea and vomiting and inability to take by mouth for which she was started on anti nausea medication, which controlled her nausea and vomiting. It was thought that her nausea and vomiting was likely related to severe anxiety. GI was consulted who had deferred outpatient management to evaluate the need for EGD. At the time of discharge, patient was hemodynamically stable and ready to be discharged. She was also found to have pulmonary embolism for which she was started on Eliquis. HOSPITAL COURSE PROBLEM ROBERTS: 1. Hypoglycemia requiring intravenous dextrose containing fluids. Abdominal imaging did not detect any insulinoma. There were some discrepancies in insulin and C- peptide level which were drawn on multiple occasions during this hospital admission. However, she only had documented hypoglycemia during first 3 hours of hospital stay at which time she was found to have higher insulin level which was unusual and her C-peptide level drawn when her sugars had started becoming almost normal was low suggestive of that this could have been factitious or that this could have been related to exogenous insulin use. However, patient did not report that. Later on during hospital admission, she has had fluctuating insulin and C-peptide level. Abdominal imaging did not detect insulinoma. It was thought that it was also possible that her hypoglycemia episode was related to anxiety and poor p.o. intake. 2. Persistent nausea and vomiting, likely because of acute gastritis. Was managed with Phenergan. Sucralfate was later added and she should follow up with Gastroenterology as an outpatient. 3. Essential hypertension was managed with her home medication of amlodipine and olmesartan. 4. Hyperlipidemia was managed with rosuvastatin. 5. Anxiety. She was started on temazepam and her citalopram dose was increased. 6. Acute pulmonary embolism. While getting a CT scan of the abdomen and pelvis to look out for insulinoma, she was detected to have a right-sided pulmonary embolism. She is not a smoker. She denies known history of any cancer, prolonged hospital stays, fracture, or travel. This was an unprovoked PE and she was started on Eliquis. She was advised to follow up with her regular doctor. TIME SPENT: More than 30 minutes were spent in taking care of this patient and discharging her. All of her questions have been answered. cc: Rom Sosa MD MTDD
[2018-08-05] MEDS ORDERED: ELIQUIS PO SCH (09:00)
== END 2018-07-29 16:30 | disposition home or self-care (01) | DRG 637 ==
LOC: 4N 11:44 → ED 11:44 → SUATTDRO 11:45 → OBSVTOIN 11:45
PROVIDERS: ATTEND Internal Medicine
CPT/HCPCS: 71010; 71045; 71275; 74177; 80048; 80053; 80101; 80196; 80301; 80307; 80324; 80329; 80345; 80346; 80353; 80358; 80361; 80365; 81001; 82003; 82009; 82533; 82550; 82607; 82746; 82948; 83036; 83525; 83735; 83992; 84206; 84439; 84443; 84484; 84681; 85025; 85610; 85730; 87088; 87275; 87276; 87804; 90732; 93005; 93306; 96374; 96375; 96376; 99285; 99999; A9270; C8929; G0431; G0434; G0479; G0480; G6038; G6039; J2405; J2550; J7030; J7042; Q9957; Q9967; XXXXX